=== PATIENT | male | born 1955 | race Native Hawaiian/Other Pacific Islander ===

== ENCOUNTER 2021-08-15 10:09 | Outpatient (CLI) | payer OTHER ==
[2021-08-15 10:37] LABS: PLATELET COUNT 167 K/uL (142-355)
[2021-08-15 11:02] LABS: POTASSIUM 3.4 mmol/L (3.6-5.2)
== END 2021-08-15 20:05 | disposition home or self-care (01) ==
LOC: LABW 10:09
PROVIDERS: ATTEND Nurse Practitioner Family
DX: I10 Essential (primary) hypertension (principal); E03.8 Other specified hypothyroidism; N19 Unspecified kidney failure; I48.91 Unspecified atrial fibrillation; E78.49 Other hyperlipidemia; I25.10 Atherosclerotic heart disease of native coronary artery without angina pectoris; I73.9 Peripheral vascular disease, unspecified
CPT/HCPCS: 36415; 80053; 80061; 84439; 84443; 84481; 85027

== ENCOUNTER 2021-09-27 09:34 | Outpatient (CLI) | payer OTHER ==
[2021-09-27 10:31] LABS: PLATELET COUNT 207 K/uL (142-355)
[2021-09-27 10:57] LABS: POTASSIUM 3.4 mmol/L (3.6-5.2)
== END 2021-09-27 19:04 | disposition home or self-care (01) ==
LOC: US 09:34
PROVIDERS: ATTEND Internal Medicine
DX: I12.9 Hypertensive chronic kidney disease with stage 1 through stage 4 chronic kidney disease, or unspecified chronic kidney disease (principal); N18.30 Chronic kidney disease, stage 3 unspecified
CPT/HCPCS: 36415; 80048; 81000; 82040; 82570; 83883; 84100; 84155; 84550; 85027; 86038; 86900; 86901

== ENCOUNTER 2021-10-03 10:10 | Outpatient (CLI) | payer OTHER ==
[2021-10-03 10:38] LABS: PLATELET COUNT 223 K/uL (142-355)
[2021-10-03 11:01] LABS: POTASSIUM 3.4 mmol/L (3.6-5.2)
== END 2021-10-03 19:19 | disposition home or self-care (01) ==
LOC: LABW 10:10
PROVIDERS: ATTEND Internal Medicine Cardiovascular Disease
DX: I25.10 Atherosclerotic heart disease of native coronary artery without angina pectoris (principal); I10 Essential (primary) hypertension; E78.49 Other hyperlipidemia; I48.91 Unspecified atrial fibrillation
CPT/HCPCS: 36415; 80053; 80061; 84443; 85027

== ENCOUNTER 2021-11-14 09:56 | Outpatient (CLI) | payer OTHER ==
[2021-11-14 12:35] LABS: POTASSIUM 4.3 mmol/L (3.6-5.2)
[2021-11-14 12:38] LABS: PLATELET COUNT 159 K/uL (142-355)
== END 2021-11-14 20:23 | disposition home or self-care (01) ==
LOC: LABW 09:56
PROVIDERS: ATTEND Internal Medicine
DX: I12.9 Hypertensive chronic kidney disease with stage 1 through stage 4 chronic kidney disease, or unspecified chronic kidney disease (principal); N18.9 Chronic kidney disease, unspecified
CPT/HCPCS: 36415; 80069; 85027

== ENCOUNTER 2021-12-27 09:34 | Outpatient (CLI) | payer OTHER ==
[2021-12-27 10:15] LABS: PLATELET COUNT 181 K/uL (142-355)
[2021-12-27 10:26] LABS: POTASSIUM 3.5 mmol/L (3.6-5.2)
== END 2021-12-27 19:04 | disposition home or self-care (01) ==
LOC: LABW 09:34
PROVIDERS: ATTEND Internal Medicine
DX: I12.9 Hypertensive chronic kidney disease with stage 1 through stage 4 chronic kidney disease, or unspecified chronic kidney disease (principal); N18.30 Chronic kidney disease, stage 3 unspecified
CPT/HCPCS: 36415; 80048; 82040; 84100; 84550; 85027

== ENCOUNTER 2022-04-04 09:18 | Outpatient (CLI) | payer OTHER ==
[2022-04-04 09:31] LABS: PLATELET COUNT 182 K/uL (142-355)
[2022-04-04 09:44] LABS: POTASSIUM 3.8 mmol/L (3.6-5.2)
== END 2022-04-04 18:50 | disposition home or self-care (01) ==
LOC: LABW 09:18
PROVIDERS: ATTEND Internal Medicine
DX: I12.9 Hypertensive chronic kidney disease with stage 1 through stage 4 chronic kidney disease, or unspecified chronic kidney disease (principal); N18.30 Chronic kidney disease, stage 3 unspecified
CPT/HCPCS: 36415; 80048; 80061; 82040; 84100; 84550; 85027

== ENCOUNTER 2022-05-19 08:47 | Outpatient (CLI) | payer OTHER ==
[2022-05-19 09:11] LABS: PLATELET COUNT 167 K/uL (142-355)
[2022-05-19 09:35] LABS: POTASSIUM 3.6 mmol/L (3.6-5.2)
== END 2022-05-19 19:03 | disposition home or self-care (01) ==
LOC: LABW 08:47
PROVIDERS: ATTEND Obstetrics & Gynecology Obstetrics
DX: E29.1 Testicular hypofunction (principal); E03.8 Other specified hypothyroidism
CPT/HCPCS: 36415; 80053; 80061; 82670; 83525; 84153; 84403; 84443; 84481; 84550; 85027

== ENCOUNTER 2022-08-14 08:46 | Outpatient (CLI) | payer OTHER ==
[2022-08-14 09:16] LABS: PLATELET COUNT 234 K/uL (142-355)
[2022-08-14 09:38] LABS: POTASSIUM 4.2 mmol/L (3.6-5.2)
== END 2022-08-14 20:41 | disposition home or self-care (01) ==
LOC: LABW 08:46
PROVIDERS: ATTEND Internal Medicine
DX: I12.9 Hypertensive chronic kidney disease with stage 1 through stage 4 chronic kidney disease, or unspecified chronic kidney disease (principal); N18.32 Chronic kidney disease, stage 3b; E29.1 Testicular hypofunction; E03.8 Other specified hypothyroidism
CPT/HCPCS: 36415; 80053; 80061; 82670; 83525; 84100; 84153; 84403; 84443; 84550; 85027

== ENCOUNTER 2022-09-26 09:39 | Outpatient (CLI) | payer OTHER ==
[2022-09-26 10:22] LABS: PLATELET COUNT 276 K/uL (142-355)
[2022-09-26 10:25] LABS: POTASSIUM 4.1 mmol/L (3.6-5.2)
== END 2022-09-26 20:57 | disposition home or self-care (01) ==
LOC: LABW 09:39
PROVIDERS: ATTEND Internal Medicine
DX: I12.9 Hypertensive chronic kidney disease with stage 1 through stage 4 chronic kidney disease, or unspecified chronic kidney disease (principal); N18.32 Chronic kidney disease, stage 3b
CPT/HCPCS: 36415; 80048; 82040; 84100; 84550; 85027

== ENCOUNTER 2022-10-09 09:55 | Outpatient (CLI) | payer OTHER ==
[2022-10-09 10:10] LABS: PLATELET COUNT 242 K/uL (142-355)
[2022-10-09 10:25] LABS: POTASSIUM 3.9 mmol/L (3.6-5.2)
== END 2022-10-09 20:22 | disposition home or self-care (01) ==
LOC: LABW 09:55
PROVIDERS: ATTEND Internal Medicine
DX: N18.32 Chronic kidney disease, stage 3b (principal); N17.9 Acute kidney failure, unspecified
CPT/HCPCS: 36415; 80048; 82040; 84100; 84550; 85027

== ENCOUNTER 2022-10-17 08:38 | Outpatient (CLI) | payer OTHER ==
[2022-10-17 09:15] LABS: POTASSIUM 3.5 mmol/L (3.6-5.2)
== END 2022-10-17 19:01 | disposition home or self-care (01) ==
LOC: LABW 08:38
PROVIDERS: ATTEND Internal Medicine
DX: N18.32 Chronic kidney disease, stage 3b (principal)
CPT/HCPCS: 36415; 80069

== ENCOUNTER 2022-11-06 08:48 | Outpatient (CLI) | payer OTHER ==
[2022-11-06 09:21] LABS: PLATELET COUNT 206 K/uL (142-355)
[2022-11-06 09:47] LABS: POTASSIUM 3.8 mmol/L (3.6-5.2)
== END 2022-11-06 21:35 | disposition home or self-care (01) ==
LOC: LABW 08:48
PROVIDERS: ATTEND Internal Medicine
DX: N18.32 Chronic kidney disease, stage 3b (principal); N17.9 Acute kidney failure, unspecified
CPT/HCPCS: 36415; 80048; 82040; 84100; 84550; 85027

== ENCOUNTER → 2022-12-01 | Emergency (ER) | payer OTHER ==
[~2022-12-01] VITALS: Ht 180.3 cm; Wt 118.8 kg
[2022-12-01 10:36] VITALS: BP 174/93; TEMP 98.9
[2022-12-01 11:08] LABS: PLATELET COUNT 214 K/uL (142-355)
== END ==
LOC: ED 10:33
PROVIDERS: Family Medicine
PROC: 2Y41X5Z Packing of Nasal Region using Packing Material (ICD-10-PCS; principal; 2022-12-01)
DX: R04.0 Epistaxis (principal); R06.2 Wheezing
CPT/HCPCS: 85027; 94664; 99284

== ENCOUNTER 2022-12-04 02:26 | Emergency (ER) | payer OTHER ==
[~2022-12-04] VITALS: Ht 180.3 cm; Wt 120.7 kg
[2022-12-04 02:42] VITALS: BP 152/74; TEMP 98.5
[2022-12-04 03:22] LABS: PLATELET COUNT 273 K/uL (142-355)
== END 2022-12-04 08:08 | disposition short-term general hospital (02) ==
LOC: ED 02:26
PROVIDERS: Family Medicine
DX: K56.609 Unspecified intestinal obstruction, unspecified as to partial versus complete obstruction (principal); R04.0 Epistaxis; Z79.01 Long term (current) use of anticoagulants; Z11.52 Encounter for screening for COVID-19
CPT/HCPCS: 36415; 80053; 81002; 85027; 87635; 99283; J2765; J3490; U0003

== ENCOUNTER 2022-12-19 09:14 | Outpatient (CLI) | payer OTHER ==
[2022-12-19 09:42] LABS: POTASSIUM 3.9 mmol/L (3.6-5.2)
[2022-12-19 09:47] LABS: PLATELET COUNT 264 K/uL (142-355)
== END 2022-12-19 21:55 | disposition home or self-care (01) ==
LOC: LABW 09:14
PROVIDERS: ATTEND Internal Medicine Cardiovascular Disease
DX: R82.998 Other abnormal findings in urine (principal); R04.0 Epistaxis; I50.32 Chronic diastolic (congestive) heart failure; I48.0 Paroxysmal atrial fibrillation; I25.10 Atherosclerotic heart disease of native coronary artery without angina pectoris; N18.31 Chronic kidney disease, stage 3a; I12.9 Hypertensive chronic kidney disease with stage 1 through stage 4 chronic kidney disease, or unspecified chronic kidney disease; Z79.899 Other long term (current) drug therapy
CPT/HCPCS: 80048; 80061; 80069; 81002; 83036; 83880; 85027

== ENCOUNTER 2023-02-07 08:08 | Outpatient (CLI) | payer OTHER ==
[2023-02-07 08:48] LABS: PLATELET COUNT 265 K/uL (142-355)
[2023-02-07 08:59] LABS: POTASSIUM 4.1 mmol/L (3.6-5.2)
== END 2023-02-07 19:01 | disposition home or self-care (01) ==
LOC: LABW 08:08
PROVIDERS: ATTEND Obstetrics & Gynecology Obstetrics
DX: E29.1 Testicular hypofunction (principal); R73.01 Impaired fasting glucose; Z79.899 Other long term (current) drug therapy
CPT/HCPCS: 36415; 80053; 80061; 82670; 83036; 83525; 84153; 84403; 84550; 85027

== ENCOUNTER 2023-02-12 08:57 | Outpatient (CLI) | payer OTHER ==
[2023-02-12 09:20] LABS: PLATELET COUNT 231 K/uL (142-355)
[2023-02-12 09:38] LABS: POTASSIUM 4.4 mmol/L (3.6-5.2)
== END 2023-02-12 21:08 | disposition home or self-care (01) ==
LOC: LABW 08:57
PROVIDERS: ATTEND Internal Medicine
DX: I12.9 Hypertensive chronic kidney disease with stage 1 through stage 4 chronic kidney disease, or unspecified chronic kidney disease (principal); N18.31 Chronic kidney disease, stage 3a
CPT/HCPCS: 36415; 80048; 82040; 84100; 84550; 85027

== ENCOUNTER 2023-03-16 08:23 | Outpatient (CLI) | payer OTHER ==
[2023-03-16 09:00] LABS: POTASSIUM 4.3 mmol/L (3.6-5.2)
== END 2023-03-16 19:21 | disposition home or self-care (01) ==
LOC: LABW 08:23
PROVIDERS: ATTEND Internal Medicine Cardiovascular Disease
DX: I50.32 Chronic diastolic (congestive) heart failure (principal); I25.10 Atherosclerotic heart disease of native coronary artery without angina pectoris; I48.0 Paroxysmal atrial fibrillation
CPT/HCPCS: 36415; 80048; 80076; 83880

== ENCOUNTER 2023-04-10 13:12 | Outpatient (CLI) | payer OTHER | END 2023-04-10 19:22 | disposition home or self-care (01) | LOC: LABW 13:12 | PROVIDERS: ATTEND Internal Medicine Cardiovascular Disease | DX: I50.32 Chronic diastolic (congestive) heart failure (principal) | CPT/HCPCS: 36415; 80048; 80061; 83880 ==

== ENCOUNTER 2023-08-13 08:40 | Outpatient (CLI) | payer OTHER ==
[2023-08-13 09:23] LABS: POTASSIUM 4.1 mmol/L (3.6-5.2)
[2023-08-13 15:59] LABS: PLATELET COUNT 196 K/uL (142-355)
== END 2023-08-13 19:13 | disposition home or self-care (01) ==
LOC: LABW 08:40
PROVIDERS: ATTEND Internal Medicine
DX: I12.9 Hypertensive chronic kidney disease with stage 1 through stage 4 chronic kidney disease, or unspecified chronic kidney disease (principal); N18.31 Chronic kidney disease, stage 3a; E11.9 Type 2 diabetes mellitus without complications
CPT/HCPCS: 36415; 80061; 80069; 83036; 84550; 85027